=== PATIENT | male | born 1955 | race Caucasian/White ===

== ENCOUNTER 2022-08-16 08:07 | Day surgery (SDC) | payer MEDICARE, BC ==
[~2022-08-16] VITALS: Ht 180.3 cm; Wt 70.6 kg
[2022-08-16] VITALS (9 sets, daily range): BP systolic 143–167; BP diastolic 74–89
[2022-08-16] MEDS ORDERED: ASPI81TA52 PO (08:33)
[2022-08-16] MEDS ORDERED: LABE100T8 PO (08:33)
[2022-08-16] MEDS ORDERED: EZET10TA48 PO (08:33)
[2022-08-16] MEDS ORDERED: ROSU40TA22 PO (08:33)
[2022-08-16] MEDS ORDERED: NIFE-34 PO (08:33)
[2022-08-16] MEDS ORDERED: OMEP20CA15 PO (08:33)
[2022-08-16] MEDS ORDERED: diphenhydrAMINE 25mg capsule PO PRN (08:45)
[2022-08-16] MEDS ORDERED: normal saline 1,000 ML IV SCH (08:45)
[2022-08-16 09:05] LABS: BASOPHILS % (AUTO) 0.7 % (0-1); EOSINOPHILS # (AUTO) 0.2 X10'3 (0-0.9); EOSINOPHILS % (AUTO) 5.1 % (0-6); HEMATOCRIT 40.9 % (42.0-52.0); LYMPHOCYTES # (AUTO) 0.9 X10'3 (1.1-4.8); LYMPHOCYTES % (AUTO) 20.1 % (21-51); MEAN CORPUSCULAR HEMOGLOBIN 30.7 PG (27.0-31.0); MEAN CORPUSCULAR HGB CONC 34.1 g/dL (33.0-36.5); MEAN CORPUSCULAR VOLUME 89.9 FL (78-98); MEAN PLATELET VOLUME 7.8 FL (7.4-10.4); MONOCYTES # (AUTO) 0.4 X10'3 (0-0.9); MONOCYTES % (AUTO) 8.7 % (2-12); NEUTROPHILS # (AUTO) 3.1 X10'3 (1.8-7.7); NEUTROPHILS % (AUTO) 65.4 % (42-75); PLATELET COUNT 183 X10'3 (140-440); RED BLOOD COUNT 4.55 X10'6 (4.70-6.10); RED CELL DISTRIBUTION WIDTH 12.8 % (11.5-14.5); WHITE BLOOD COUNT 4.7 X10'3 (4.5-11.0)
[2022-08-16 09:14] LABS: ALBUMIN 3.9 G/DL (3.4-5.0); ANION GAP 7 (8-16); BLOOD UREA NITROGEN 13 MG/DL (7-18); BUN/CREATININE RATIO 11.2 (10.0-20.0); CALCIUM 8.9 MG/DL (8.5-10.1); CHLORIDE 104 MMOL/L (99-107); CREATININE 1.16 MG/DL (0.60-1.10); GLUCOSE 121 MG/DL (70-104); MAGNESIUM 2.2 MG/DL (1.5-2.4); POTASSIUM 3.9 MMOL/L (3.5-5.1); SODIUM 139 MMOL/L (135-145); TOTAL CARBON DIOXIDE 27.6 MMOL/L (24-32); eGFR 63 ML/MIN
[2022-08-16] MEDS ORDERED: fentaNYL/PF 50MCG/1 ML 2ML syringe ONE (09:31)
[2022-08-16] MEDS ORDERED: midazolam 1 mg/ML 2ml injection ONE ×3 (09:31→10:37)
[2022-08-16] MEDS ORDERED: heparin 1,000unit/ml 10ml vial 10 ML ONE (09:31)
[2022-08-16] MEDS ORDERED: iohexol 350 MG/ML 50ML vial IV ONE ×3 (09:31→10:56)
[2022-08-16] MEDS ORDERED: iohexol 350MG/ML 100ml bottle IV ONE ×2 (09:31→10:58)
[2022-08-16] MEDS ORDERED: LIDOcaine 1% 30ml preserv. free vial ONE (09:31)
[2022-08-16] MEDS ORDERED: ticagrelor 90mg tablet ONE (11:57)
[2022-08-16] MEDS ORDERED: proCHLORperazine 10 MG/2 ml inj IV PRN (12:50)
[2022-08-16] MEDS ORDERED: HYDROcodone/acetaminophen 5mg/325mg tablet PO PRN (12:50)
[2022-08-16] MEDS ORDERED: normal saline 1000ml 1,000 ML IV SCH (12:50)
[2022-08-16] MEDS ORDERED: HYDROcodone/acetaminophen 10/325mg tab PO PRN (12:50)
[2022-08-16] MEDS: ondansetron/PF 4mg/2ml inj IV PRN (16:17)
== END 2022-08-16 16:30 | disposition home or self-care (01) ==
LOC: SSTAY O 08:07
PROVIDERS: ATTEND Internal Medicine Cardiovascular Disease
DX: I25.118 Atherosclerotic heart disease of native coronary artery with other forms of angina pectoris (principal); I70.1 Atherosclerosis of renal artery; I25.10 Atherosclerotic heart disease of native coronary artery without angina pectoris; Z79.899 Other long term (current) drug therapy; E78.5 Hyperlipidemia, unspecified; I10 Essential (primary) hypertension; Z98.890 Other specified postprocedural states; Z79.82 Long term (current) use of aspirin; I71.8 Aortic aneurysm of unspecified site, ruptured
CPT/HCPCS: 36415; 37236; 80048; 83735; 85025; 85610; 93005; 93458; 99152; 99153; C1725; C1760; C1769; C1876; C1887; C1894; J1644; J2250; J2405; J3010; J3490; J7030; Q9967; 36252; A6258

== ENCOUNTER 2022-11-08 06:35 | Day surgery (SDC) | payer MEDICARE, BC ==
[2022-11-08] VITALS (14 sets, daily range): BP systolic 127–164; BP diastolic 65–88
[~2022-11-08] VITALS: Ht 180.3 cm; Wt 69.2 kg
[~2022-11-08 06:35] MED LIST: ASPI81TA52 PO; CLOP75TA34 PO; LABE100T8 PO; NIFE-34 PO; OMEP20CA15 PO; diphenhydrAMINE 25mg capsule PO PRN
[2022-11-08] MEDS ORDERED: normal saline 1,000 ML IV SCH (06:55)
[2022-11-08] MEDS ORDERED: diphenhydrAMINE 25mg capsule PO PRN (06:55)
[2022-11-08] MEDS ORDERED: SODIUM BICARB 150mEq/D5W 1L 999 ML IV SCH ×2 (06:55)
[2022-11-08 07:13] LABS: BASOPHILS % (AUTO) 1.1 % (0-1); EOSINOPHILS # (AUTO) 0.3 X10'3 (0-0.9); EOSINOPHILS % (AUTO) 6.9 % (0-6); HEMATOCRIT 42.8 % (42.0-52.0); HEMOGLOBIN 14.1 g/dl (14.0-17.9); LYMPHOCYTES # (AUTO) 0.9 X10'3 (1.1-4.8); LYMPHOCYTES % (AUTO) 19.5 % (21-51); MEAN CORPUSCULAR HEMOGLOBIN 30.4 PG (27.0-31.0); MEAN CORPUSCULAR HGB CONC 33.1 g/dL (33.0-36.5); MEAN CORPUSCULAR VOLUME 91.9 FL (78-98); MEAN PLATELET VOLUME 8.1 FL (7.4-10.4); MONOCYTES # (AUTO) 0.4 X10'3 (0-0.9); MONOCYTES % (AUTO) 8.4 % (2-12); NEUTROPHILS # (AUTO) 2.9 X10'3 (1.8-7.7); NEUTROPHILS % (AUTO) 64.1 % (42-75); PLATELET COUNT 191 X10'3 (140-440); RED BLOOD COUNT 4.66 X10'6 (4.70-6.10); RED CELL DISTRIBUTION WIDTH 13.5 % (11.5-14.5); WHITE BLOOD COUNT 4.5 X10'3 (4.5-11.0)
[2022-11-08] MEDS ORDERED: CLOP-32 PO (07:24)
[2022-11-08 07:26] LABS: ALBUMIN 3.9 G/DL (3.4-5.0); ANION GAP 10 (8-16); BLOOD UREA NITROGEN 14 MG/DL (7-18); CALCIUM 9.1 MG/DL (8.5-10.1); CHLORIDE 103 MMOL/L (99-107); GLUCOSE 122 MG/DL (70-104); MAGNESIUM 2.1 MG/DL (1.5-2.4); POTASSIUM 3.9 MMOL/L (3.5-5.1); SODIUM 140 MMOL/L (135-145); TOTAL CARBON DIOXIDE 27.3 MMOL/L (24-32); eGFR 50 ML/MIN
[2022-11-08] MEDS: normal saline 1,000 ML IV SCH ×2 (08:21→15:41)
[2022-11-08] MEDS ORDERED: fentaNYL/PF 50MCG/1 ML 2ML syringe ONE ×2 (08:32→10:09)
[2022-11-08] MEDS ORDERED: heparin 1,000 UNITS/NS 500ml 500 ML ONE ×2 (08:32→09:57)
[2022-11-08] MEDS ORDERED: LIDOcaine 1% (10mg/ml) 2ml vial ONE (08:32)
[2022-11-08] MEDS ORDERED: midazolam 1 mg/ML 2ml injection ONE ×4 (08:32→10:42)
[2022-11-08] MEDS ORDERED: iohexol 350MG/ML 100ml bottle IV ONE ×2 (08:33→09:58)
[2022-11-08] MEDS ORDERED: heparin 1,000unit/ml 10ml vial 10 ML ONE (09:04)
[2022-11-08] MEDS ORDERED: nitroGLYCERIN-Tridil 50MG/D5W 250 ML IV ONE (10:01)
[2022-11-08] MEDS ORDERED: verapamil 2.5 mg/ml inj IV ONE (10:01)
[2022-11-08] MEDS ORDERED: HYDROcodone/acetaminophen 5mg/325mg tablet PO PRN (12:45)
[2022-11-08] MEDS ORDERED: HYDROcodone/acetaminophen 10/325mg tab PO PRN (12:45)
[2022-11-08] MEDS ORDERED: proCHLORperazine 10 MG/2 ml inj IV PRN (12:45)
[2022-11-08] MEDS ORDERED: ondansetron/PF 4mg/2ml inj IV PRN (12:45)
[2022-11-08] MEDS ORDERED: normal saline 1000ml 1,000 ML IV SCH (12:45)
[2022-11-08] MEDS ORDERED: glycopyrrolate 0.2mg/ml inj IV ONE (15:20)
== END 2022-11-08 16:15 | disposition home or self-care (01) ==
LOC: SSTAY O 06:35
PROVIDERS: ATTEND Internal Medicine Cardiovascular Disease
DX: I70.1 Atherosclerosis of renal artery (principal); I10 Essential (primary) hypertension; E78.5 Hyperlipidemia, unspecified; I25.118 Atherosclerotic heart disease of native coronary artery with other forms of angina pectoris; I71.8 Aortic aneurysm of unspecified site, ruptured; Z79.01 Long term (current) use of anticoagulants; Z79.899 Other long term (current) drug therapy; Z79.82 Long term (current) use of aspirin; Z87.891 Personal history of nicotine dependence; Z95.5 Presence of coronary angioplasty implant and graft; Z72.89 Other problems related to lifestyle; Z88.8 Allergy status to other drugs, medicaments and biological substances
CPT/HCPCS: 36251; 36415; 37236; 80048; 83735; 85025; 85610; 93005; 99152; 99153; C1769; C1874; J1644; J2250; J2405; J3010; J3490; J7030; Q0163; Q9967; A6258; A6402; C1725; C1894